=== PATIENT | male | born 1955 | race Caucasian/White ===

== ENCOUNTER 2017-02-03 21:24 | Inpatient (IN) | payer OTHER ==
[~2017-02-03] VITALS: Ht 188 cm; Wt 116.0 kg
--- NOTE | ~2017-02-03 | EKG ---
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
--- NOTE | ~2017-02-03 | 2DMMODE ---
[facility] [address] [place] [address] 2 D/M-MODE ECHOCARDIOGRAM Name: CLIFF MORALES Room #: 208-P ADM IN M.R.#: [id number] Admission: 02/03/17 Attend Phys: Ragini Dockery Discharge: Date of : 57 Date of Service: 02/05/17 1410 Report #: [id number] THIS REPORT FOR: //name// APPROVED REPORT Study performed: 02/05/2017 08:54:21 EXAM: Comprehensive 2D, Doppler, and color-flow Echocardiogram Patient Location: Bedside/Room 208 Blood Pressure: 116/79 mmHg HR: 66 bpm Rhythm: NSR Other Information Study Quality: Good Indications Atrial Fibrillation 2D Dimensions RVDd: 39.64 mm LVEF(%): 65.55 (>50%) IVSd: 11.14 (7-11mm) LVOT Diam: 21.45 (18-24mm) LVDd: 49.52 mm PWd: 8.65 (7-11mm) Ascending Aorta: 34.18 mm LVDs: 31.64 (25-40mm) Aortic Root: 36.67 mm Lopez's LVEF: 65.55 % Volumes Left Atrial Volume (Systole) Single Plane 4CH: 57.46 mL Single Plane 2CH: 61.83 mL LA ESV Index: 27.00 mL/m2 Aortic Valve AoV Peak Jaleel.: 1.58 m/s AO Peak Gr.: 10.04 mmHg LV Max P.18 mmHg LV Max: 1.43 m/s Mitral Valve MV PHT: 69.67 ms MV E Max Jaleel.: 0.67 m/s E/A Ratio: 1.1 MV A Jaleel.: 0.61 m/s MV Decel. Time: 240.25 ms [facility] [place] [address] 2 D/M-MODE ECHOCARDIOGRAM Name: ANDREWCLIFF GARTH Room #: 208-P [facility] IN M.R.#: [id number] Admission: 02/03/17 Attend Phys: Ragini Dockery Discharge: Date of : 57 Date of Service: 02/05/17 1410 Report #: [id number] Pulmonary Valve PV Peak Jaleel.: 0.75 m/s PV Peak Gr.: 2.25 mmHg Tricuspid Valve TR Peak Jaleel.: 2.73 m/s RAP Estimate: 5.00 mmHg TR Peak Gr.: 29.77 mmHg RVSP: 35.00 mmHg Left Ventricle The left ventricle is normal size. There is normal LV segmental wall motion. There is normal left ventricular wall thickness. Left ventricular systolic function is normal. LVEF is 55%. Grade II - pseudonormal filling dynamics. Right Ventricle The right ventricle is normal size. The right ventricular systolic function is normal. Atria The left atrium size is normal. The right atrium size is normal. Aortic Valve The aortic valve is normal in structure. No aortic regurgitation is present. There is no aortic valvular stenosis. Mitral Valve The mitral valve is normal in structure. There is no mitral valve regurgitation noted. There is no mitral valve stenosis. Tricuspid Valve The tricuspid valve is normal in structure. There is trace to mild tricuspid regurgitation. The right atrial pressure is estimated at 5 mmHg. There is mild pulmonary hypertension with an estimated PAP of 35mmHg. Pulmonic Valve The pulmonary valve is normal in structure. Trace pulmonic regurgitation. Great Vessels The aortic root is normal in size. The ascending aorta is normal in size. IVC is normal in size and collapses >50% with inspiration. Pericardium [place] [id number] 2 D/M-MODE ECHOCARDIOGRAM Name: CLIFF MORALES Room #: 208-P [facility] IN .R.#: [id number] Admission: 02/03/17 Attend Phys: Ragini Dockery Discharge: Date of : 57 Date of Service: 02/05/17 1410 Report #: [id number] There is no pericardial effusion. <Conclusion> The left ventricle is normal size. There is normal left ventricular wall thickness. Left ventricular systolic function is normal. The right ventricle is normal size. The left atrium size is normal. The aortic valve is normal in structure. The mitral valve is normal in structure. There is trace to mild tricuspid regurgitation. The right atrial pressure is estimated at 5 mmHg. There is mild pulmonary hypertension with an estimated PAP of 35mmHg. <ELECTRONICALLY SIGNED> By: Jesus Alberto Bowser MD 02/05/17 1410 141 141 Jesus Alberto Bowser MD /INF
--- NOTE | ~2017-02-03 | HC ---
[facility] [place] [address] CONSULTATION Name: ANDREWCLIFF GARTH Room #: 208-P [facility] IN M.R.#: [id number] Admission: 02/03/17 Attend Phys: Sam Baez MD Discharge: 02/05/17 Date of : 57 Report #: [id number] THIS REPORT FOR: //name// CC: Maninder Campos REASON FOR CONSULTATION: Atrial fibrillation. HISTORY OF PRESENT ILLNESS: The patient is a 61-year-old male who presented to the Emergency Room after he was eating at a [employer] and he felt some palpitations and some chest pressure. He also felt lightheaded when he would standup. He took some Ativan and this did not help. He reports that he has prior been having similar type symptoms for the past 6 months in retrospect. In the ER, he was found to be in AFib with RVR. He was started on diltiazem drip and converted to sinus rhythm and is currently in normal rhythm. Otherwise, he never has any problems with chest pain or chest tightness. He denies any PND or orthopnea. He denies presyncope or syncope. He does take a HIV prophylactic medication and manages his lipids on this medication, but he reports he does not have HIV; he gets tested every 3 months. PAST MEDICAL HISTORY: 1. Back pain, migraines. 2. GERD. 3. Left foot surgery with staph infection in the past. SOCIAL HISTORY: Quit smoking 20 years ago. FAMILY HISTORY: Noncontributory. ALLERGIES: None. MEDICATIONS: Reviewed. PHYSICAL EXAMINATION: VITAL SIGNS: Temperature is 36.4, pulse 72, respiration 18, blood pressure 101/71, sats 96%. GENERAL: He is in no acute distress. HEENT: Oropharynx is clear. NECK: Supple, no thyromegaly. HEART: Regular rate and rhythm with no murmurs, rubs, gallops. LUNGS: Clear to auscultation bilaterally. ABDOMEN: Soft, nontender, nondistended with no hepatosplenomegaly. EXTREMITIES: There is no clubbing, cyanosis or edema. NEUROLOGIC: Cranial nerves 2-12 are intact. LABORATORY DATA: His 12-lead EKG initial showed atrial fibrillation, a repeat one shows normal sinus rhythm with normal intervals and no ischemic changes. [address] [address] CONSULTATION Name: ANDREWCLIFF BONILLAERN Room #: [address] [place] [address] IN ..#: [id number] Admission: 02/03/17 Attend Phys: Sam Baez MD Discharge: 02/05/17 Date of : 57 Report #: [id number] His labs are reviewed, he has a normal CBC, he has a normal chemistry with a creatinine of 1.3. His troponin is negative x 1. ASSESSMENT AND PLAN: The patient is a 61-year-old with new onset paroxysmal atrial fibrillation. I recommend starting him on Toprol 25 mg once a day. Given his CHADS-VASc score, we will start him on aspirin 325 once a day. I recommend obtaining an echocardiogram tomorrow and monitor overnight. If he remains in normal rhythm, he can be discharged tomorrow. <ELECTRONICALLY SIGNED> By: Familia Guthrie MD 02/12/17 0854 1130 07 Familia Guthrie MD /nt
--- NOTE | ~2017-02-03 | EKG ---
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
[~2017-02-03 21:24] MED LIST: AMBIEN5 MG PO; IBUPROFEN 200200 M1 PO; TAGAMET HB200 MG PO; TRUVADA1 EAC1 PO; XANAX 0.25 MG0.25 MG PO; [UNRECOGNIZED DRUG - OTHER] PO
[2017-02-03 21:25] VITALS: BP 135/81
[2017-02-03] MEDS ORDERED: XANAX 0.25 MG0.25 MG PO (21:30)
[2017-02-03 22:23] LABS: ABSOLUTE NEUTROPHILS 4.5 thou/uL (1.4-8.2); BASOPHILS 0.8 % (0.0-2.0); EOSINOPHILS 4.1 % (0.0-3.0); HEMATOCRIT 44.3 % (42.0-52.0); LYMPHOCYTES 37.7 % (24.0-44.0); MANUAL DIFF NO; MCH 31.5 pg (26.0-34.0); MCV 92.7 fL (80.0-100.0); MONOCYTES 8.1 % (1.0-8.0); PLATELET COUNT 377 thou/uL (150-400); POLYS 49.3 % (36.0-66.0); RBC 4.78 mil/uL (4.50-6.00); RDW 14.1 % (10.5-14.5)
[2017-02-03 22:29] LABS: ANION GAP 9 mmol/L (7-16); BUN 12 mg/dL (7-18); CHLORIDE 107 mmol/L (98-107); CO2 26 mmol/L (21-32); CREATININE 1.3 mg/dL (0.6-1.3); GLUCOSE 112 mg/dL (70-99); POTASSIUM 4.2 mmol/L (3.5-5.1); SODIUM 142 mmol/L (136-145)
[2017-02-03 22:36] LABS: MAGNESIUM 2.4 mg/dL (1.8-2.4); TROPONIN-I < 0.04 ng/mL (<0.04-0.07)
[2017-02-03 23:29] VITALS: BP 118/77
[2017-02-04 00:05] VITALS: BP 143/88
[2017-02-04] MEDS ORDERED: CIMETIDINE200 MG PO (01:15)
[2017-02-04 03:12] VITALS: BP 91/55
[2017-02-04 07:45] VITALS: BP 101/71
[2017-02-04 11:30] VITALS: BP 103/68
[2017-02-04 15:50] VITALS: BP 102/63
[2017-02-04 19:44] VITALS: BP 101/58
[2017-02-05 04:11] VITALS: BP 110/80
[2017-02-05 07:40] VITALS: BP 116/79
[2017-02-05 08:35] VITALS: BP 116/79
[2017-02-05 11:00] VITALS: BP 117/66
[2017-02-05] MEDS ORDERED: ASPIRIN EC325 M1 PO (12:21)
[2017-02-05] MEDS ORDERED: METOPROLOL SUCC25 M1 PO (12:21)
[2017-02-05 15:47] VITALS: BP 116/79
== END 2017-02-05 16:33 | disposition home or self-care (01) | DRG 310 ==
LOC: ER 21:24 → 2N 22:45 → EROBS 22:45 → 2N 23:31
PROVIDERS: Emergency Medicine
DX: I48.91 Unspecified atrial fibrillation (principal); R06.00 Dyspnea, unspecified; G43.909 Migraine, unspecified, not intractable, without status migrainosus; G89.29 Other chronic pain; M54.9 Dorsalgia, unspecified; G47.00 Insomnia, unspecified; K21.9 Gastro-esophageal reflux disease without esophagitis; F19.90 Other psychoactive substance use, unspecified, uncomplicated; Z96.698 Presence of other orthopedic joint implants; R09.02 Hypoxemia; F41.9 Anxiety disorder, unspecified; Z79.82 Long term (current) use of aspirin; Z90.49 Acquired absence of other specified parts of digestive tract; Z87.891 Personal history of nicotine dependence
CPT/HCPCS: 10081

== ENCOUNTER 2017-02-07 11:29 | Emergency (ER) | payer OTHER ==
[~2017-02-07] VITALS: Ht 185.4 cm; Wt 111.1 kg
--- NOTE | ~2017-02-07 | EKG ---
[address] [address] ELECTROCARDIOGRAM REPORT Name: CLIFF MORALES 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
[~2017-02-07 11:29] MED LIST changes: +ASPIRIN EC325 M1 PO; +CIMETIDINE200 MG PO; +METOPROLOL SUCC25 M1 PO
[2017-02-07 12:02] LABS: ABSOLUTE NEUTROPHILS 5.4 thou/uL (1.4-8.2); BASOPHILS 0.5 % (0.0-2.0); EOSINOPHILS 1.3 % (0.0-3.0); HEMATOCRIT 43.6 % (42.0-52.0); HEMOGLOBIN 14.8 gm/dL (14.0-18.0); LYMPHOCYTES 26.5 % (24.0-44.0); MCH 31.7 pg (26.0-34.0); MCV 93.1 fL (80.0-100.0); MONOCYTES 7.8 % (1.0-8.0); PLATELET COUNT 328 thou/uL (150-400); POLYS 63.9 % (36.0-66.0); RBC 4.68 mil/uL (4.50-6.00); RDW 13.7 % (10.5-14.5); WBC 8.5 thou/uL (4.0-11.0)
[2017-02-07 12:03] LABS: MANUAL DIFF NO
[2017-02-07 12:10] LABS: ANION GAP 6 mmol/L (7-16); BUN 12 mg/dL (7-18); CALCIUM 8.9 mg/dL (8.5-10.1); CHLORIDE 107 mmol/L (98-107); CO2 29 mmol/L (21-32); CREATININE 1.1 mg/dL (0.7-1.3); GLUCOSE 102 mg/dL (74-106); POTASSIUM 4.2 mmol/L (3.5-5.1); SODIUM 142 mmol/L (136-145)
[2017-02-07 12:18] LABS: TROPONIN-I < 0.04 ng/mL (<0.04-0.07)
[2017-02-07] MEDS ORDERED: PREDNISONE 20 M20 MG PO (12:30)
== END 2017-02-07 12:58 | disposition home or self-care (01) ==
LOC: ER 11:29
PROVIDERS: Emergency Medicine
DX: M54.12 Radiculopathy, cervical region (principal); G47.00 Insomnia, unspecified; K21.9 Gastro-esophageal reflux disease without esophagitis; Z90.89 Acquired absence of other organs; Z90.49 Acquired absence of other specified parts of digestive tract; Z87.891 Personal history of nicotine dependence

== ENCOUNTER 2018-09-08 17:55 | Emergency (ER) | payer OTHER ==
[~2018-09-08] VITALS: Ht 188 cm; Wt 111.1 kg
[~2018-09-08 17:55] MED LIST changes: +PREDNISONE 20 M20 MG PO
[2018-09-08] MEDS ORDERED: ASPIR 8181 MG PO (18:19)
[2018-09-08] MEDS ORDERED: ALLEGRA ALLERG180 MG PO (18:19)
[2018-09-08 18:38] LABS: ABSOLUTE NEUTROPHILS 14.3 thou/uL (1.4-8.2); BASOPHILS 0.4 % (0.0-2.0); EOSINOPHILS 0.4 % (0.0-3.0); HEMATOCRIT 39.9 % (42.0-52.0); HEMOGLOBIN 13.8 gm/dL (14.0-18.0); MCH 32.2 pg (26.0-34.0); MCHC 34.7 g/dL (28.0-37.0); MCV 92.7 fL (80.0-100.0); MONOCYTES 6.1 % (1.0-8.0); PLATELET COUNT 330 thou/uL (150-400); POLYS 79.1 % (36.0-66.0); WBC 18.1 thou/uL (4.0-11.0)
[2018-09-08 18:47] LABS: CREATININE 1.5 mg/dL (0.7-1.3)
[2018-09-08] MEDS ORDERED: KEFLEX500 M1 PO (21:07)
[2018-09-08] MEDS ORDERED: ULTRAM 50MG TAB50 MG PO (21:09)
[2018-09-08] MEDS ORDERED: ZOFRAN ODT4 MG PO (21:09)
[2018-09-08 21:32] VITALS: BP 109/63
== END 2018-09-08 21:34 | disposition home or self-care (01) ==
LOC: ER 17:55
PROVIDERS: Emergency Medicine
DX: L04.0 Acute lymphadenitis of face, head and neck (principal); R11.0 Nausea; Z87.891 Personal history of nicotine dependence; Z90.49 Acquired absence of other specified parts of digestive tract; K21.9 Gastro-esophageal reflux disease without esophagitis; I48.91 Unspecified atrial fibrillation

== ENCOUNTER 2020-04-08 14:01 | Emergency (ER) | payer OTHER ==
[~2020-04-08] VITALS: Ht 188 cm; Wt 113.4 kg
[~2020-04-08 14:01] MED LIST changes: +ALLEGRA ALLERG180 MG PO; +ASPIR 8181 MG PO; +KEFLEX500 M1 PO; +ULTRAM 50MG TAB50 MG PO; +ZOFRAN ODT4 MG PO
[2020-04-08 14:28] LABS: ABSOLUTE NEUTROPHILS 2.8 thou/uL (1.4-8.2); BASOPHILS 0.9 % (0.0-2.0); EOSINOPHILS 3.1 % (0.0-3.0); HEMATOCRIT 40.4 % (42.0-52.0); HEMOGLOBIN 13.8 gm/dL (14.0-18.0); LYMPHOCYTES 41.1 % (24.0-44.0); MCH 32.3 pg (26.0-34.0); MCHC 34.1 g/dL (28.0-37.0); MCV 94.8 fL (80.0-100.0); MONOCYTES 6.5 % (1.0-8.0); PLATELET COUNT 314 thou/uL (150-400); POLYS 48.4 % (36.0-66.0); RBC 4.26 mil/uL (4.50-6.00); RDW 13.7 % (10.5-14.5); WBC 5.8 thou/uL (4.0-11.0)
[2020-04-08 14:41] LABS: ANION GAP 7 mmol/L (7-16); BUN 17 mg/dL (7-18); CALCIUM 8.3 mg/dL (8.5-10.1); CHLORIDE 102 mmol/L (98-107); CO2 28 mmol/L (21-32); CREATININE 1.1 mg/dL (0.7-1.3); GLUCOSE 129 mg/dL (74-106); POTASSIUM 3.9 mmol/L (3.5-5.1); SODIUM 137 mmol/L (136-145)
[2020-04-08 14:51] LABS: ALBUMIN 4.1 g/dL (3.4-5.0); SGOT 24 U/L (15-37); SGPT 41 U/L (30-65); TOTAL BILIRUBIN 0.3 mg/dL (0.2-1.0); TOTAL PROTEIN 7.5 g/dL (6.4-8.2); TROPONIN-I <0.06 ng/mL (<0.06)
--- NOTE | 2020-04-08 16:11 | EKG ---
[facility] [place] [address] ELECTROCARDIOGRAM REPORT Name: CLIFF MORALES [facility] [id number] Admission: 04/08/20 Attend Phys: Discharge: Date of : 57 Report #: [id number] THIS REPORT FOR: cc: Maninder Morales MD, Darren E. MD Couchonnal, Luis F. 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
[2020-04-08 16:29] VITALS: BP 128/78
== END 2020-04-08 17:25 | disposition home or self-care (01) ==
LOC: ER 14:01
PROVIDERS: Emergency Medicine
DX: R07.89 Other chest pain (principal); Z87.891 Personal history of nicotine dependence; Z79.82 Long term (current) use of aspirin; Z79.899 Other long term (current) drug therapy; Z98.890 Other specified postprocedural states; Z90.49 Acquired absence of other specified parts of digestive tract

== ENCOUNTER → 2021-02-03 | Outpatient (CLI) | payer OTHER | LOC: CAT 08:18 | PROVIDERS: ATTEND Family Medicine | DX: Z13.6 Encounter for screening for cardiovascular disorders (principal); I25.10 Atherosclerotic heart disease of native coronary artery without angina pectoris; E78.00 Pure hypercholesterolemia, unspecified ==

== ENCOUNTER 2021-12-23 16:14 | Emergency (ER) | payer OTHER ==
[~2021-12-23] VITALS: Ht 188 cm; Wt 112.5 kg
[2021-12-23 16:37] LABS: ABSOLUTE NEUTROPHILS 7.6 thou/uL (1.4-8.2); BASOPHILS 0.2 % (0.0-2.0); EOSINOPHILS 0.1 % (0.0-3.0); HEMOGLOBIN 13.9 gm/dL (14.0-18.0); LYMPHOCYTES 16.8 % (24.0-44.0); MCH 31.4 pg (26.0-34.0); MCHC 33.1 g/dL (28.0-37.0); MCV 94.7 fL (80.0-100.0); MONOCYTES 3.2 % (1.0-8.0); PLATELET COUNT 343 thou/uL (150-400); POLYS 79.7 % (36.0-66.0); RBC 4.43 mil/uL (4.50-6.00); RDW 14.5 % (10.5-14.5); WBC 9.6 thou/uL (4.0-11.0)
[2021-12-23 16:58] LABS: CALCIUM 8.5 mg/dL (8.5-10.1); CREATININE 1.3 mg/dL (0.7-1.3); POTASSIUM 3.7 mmol/L (3.5-5.1)
[2021-12-23 17:08] LABS: TOTAL BILIRUBIN 0.6 mg/dL (0.2-1.0); TOTAL PROTEIN 6.9 g/dL (6.4-8.2)
[2021-12-23 17:43] VITALS: BP 114/62
--- NOTE | 2021-12-26 07:34 | EKG ---
[address] [address] ELECTROCARDIOGRAM REPORT Name: ANDREWCLIFF GARTH Room #: 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: [facility] : 1955 Requested By: Mauricio Huizar Order Number: [id number] MD: Francis Sarmiento Measurements Intervals [place] Rate: 60 P: 45 MA: 190 QRS: 47 QRSD: 100 T: 58 QT: 416 QTc: 416 Interpretive Statements Sinus rhythm Compared to ECG 04/08/2020 14:03:47 No significant changes Electronically Signed On 12-26-2021 7:34:38 CHEMICAL LAB SUPERVISOR by Francis Sarmiento [email or web address] <ELECTRONICALLY SIGNED> By: Francis Sarmiento MD, [facility] 12/26/21 0734 1620 1620 Francis Sarmiento MD, FACC /EPI
== END 2021-12-23 17:45 | disposition home or self-care (01) ==
LOC: ER 16:14
PROVIDERS: Emergency Medicine
DX: R07.89 Other chest pain (principal); R00.2 Palpitations; F17.210 Nicotine dependence, cigarettes, uncomplicated; Z98.890 Other specified postprocedural states; Z90.49 Acquired absence of other specified parts of digestive tract